=== PATIENT | female | born 1985 | race African-American/Black ===

== ENCOUNTER 2016-08-04 20:28 | Emergency (ER) | payer SELFPAY ==
[~2016-08-04] VITALS: Ht 165.1 cm; Wt 59.0 kg
[2016-08-04 20:46] VITALS: BP 135/76
== END 2016-08-04 22:50 | disposition left against medical advice (07) ==
LOC: ER 20:28
DX: J45.909 Unspecified asthma, uncomplicated (principal); Z53.21 Procedure and treatment not carried out due to patient leaving prior to being seen by health care provider

== ENCOUNTER 2016-08-05 12:08 | Emergency (ER) | payer SELFPAY ==
[~2016-08-05] VITALS: Ht 157.5 cm; Wt 59.0 kg
[2016-08-05 12:40] VITALS: BP 141/85
== END 2016-08-05 17:45 | disposition left against medical advice (07) ==
LOC: ER 17:41
DX: R06.02 Shortness of breath (principal); M54.9 Dorsalgia, unspecified; Z53.21 Procedure and treatment not carried out due to patient leaving prior to being seen by health care provider